=== PATIENT | female | born 1980 | race Caucasian/White ===

== ENCOUNTER 2022-03-27 15:47 | Emergency (ER) | payer MEDICAID, OTHER, SELFPAY ==
[2022-03-27] MEDS: Ibuprofen 600 MG TABLET PO (16:32)
[2022-03-27 16:34] VITALS: BP 104/50; PULSE 100; RESP 18; TEMP 36.4; O2SAT 98; BMI 23.6
--- NOTE | 2022-03-27 17:18 | ED.GENADULT ---
HPI - General Adult General Chief complaint: Ear Problems Stated complaint: ear pain/fever/dizziness/headaches Time Seen by Provider: 03/27/22 16:47 Source: patient Mode of arrival: ambulatory Limitations: no limitations History of Present Illness HPI narrative: 41-year-old female presents to ED for left ear pain, decreased hearing in left ear, dizziness, headache, chills, body aches, and nausea. Patient denies any chest pain, shortness of breath, coughing up blood, rash, abdominal pain, dysuria, hematuria, leg swelling, leg pain, calf pain, dysuria, hematuria, or flank pain. Related Data Previous Rx's Medication Instructions Recorded amoxicillin 875 mg-potassium 1 tab PO Q12H 10 Days #20 tab 03/27/22 clavulanate 125 mg tablet carbamide peroxide 6.5 % ear drops 5 drp OTIC (EAR) LEFT Q12H 4 Days 03/27/22 (Debrox) #60 ml Allergies Allergy/AdvReac Type Severity Reaction Status Date / Time No Known Allergies Allergy Verified 03/27/22 16:36 Review of Systems Review of Systems: Subjective fever, left ear ear pain, decreased hearing of left ear, headache, body aches, chills, Yes all other systems are reviewed and are negative [facility] Past Medical History Medical History (Updated 03/27/22 @ 18:47 by BRENDA Fischer) Asthma Social History Social History Advance Directives: No Advance Directives Information Provided: No Physical Exam ED Vital Signs: Vital Signs - 24 hr 03/27/22 16:34 03/27/22 18:31 Temperature 97.5 F 96.5 F L Pulse Rate 100 82 Respiratory Rate 18 15 Blood Pressure 104/50 L 131/75 Pulse Oximetry 98 100 BMI result Body Mass Index 23.6 Const General: cooperative, healthy appearing, comfortable, no acute distress, well developed, alert and awake Orientation/consciousness: patient oriented x3 HENMT Head: Yes normal to inspection, Yes No palpable skull fracture present, Yes normocephalic, Yes atraumatic and No abrasion Ears: hearing grossly normal bilaterally, external ears normal, EAC's normal, mastoids normal, no periauricular adenopathy and Abnormal EAC present (not able to asses TM on left ear) cerumen impaction on the left and excessive cerumen on the left Eyes General: appearance normal, both eyes and all related structures Neck Neck: Yes normal visual inspection, Yes full ROM, Yes no lymphadenopathy, Yes no meningeal signs, Yes trachea midline, Yes supple, No anterior neck swelling and No tender Chest Chest palpation & inspection: normal inspection of the chest and normal palpation of entire chest wall Resp Effort & Inspection: normal respiratory effort and able to speak in complete sentences Auscultation: clear to auscultation bilaterally Cardio Jugular venous distension: no JVD Heart sounds: S1 normal heart sound present and S2 normal heart sound present GI Inspection: Yes normal to inspection and No abdominal wall ecchymosis Palpation (GI): Soft to palpation, not firm, nontender, no guarding and not rigid General: No CVA tenderness and Yes no CVA tenderness Back/Spine/Pelvis Back: no CVA tenderness, No CVA tenderness and No back tenderness Skin General skin exam: no rashes or lesions noted and elasticity normal Neuro General: patient oriented x3, gait normal, no meningeal signs and CN's II-XI intact bilaterally Cranial nerves: Yes CN's II-XII intact bilaterally Extrem General: Yes normal to inspection and Yes full ROM Psych Appearance: grossly normal, well kempt and not disheveled Course Course Course Narrative: COVID, influenza, UA ordered. Reevaluation(s) Reevaluation #1: Patient COVID influenza swab negative. UA negative for UTI. Patient will be discharged with antibiotics for her ear due to patient stating ear pain and not able to assess tympanic membrane so will discharge with oral antibiotics. Will give Debrox for cerumen. Time: 18:45 Medical Decision Making [facility] Narrative Medical decision making narrative: Cerumen impaction. Infection. Lab Data Labs: Lab Results 03/27/22 03/27/22 03/27/22 Range/Units 16:30 16:30 17:12 Urine Color YELLOW Urine Appearance CLEAR Urine pH 5.5 (5.0-8.0) Ur Specific [place] 1.020 (1.005-1.025) Urine Protein NEG (NEG-TRACE) MG/DL Urine Glucose (UA) NEG (NEG) MG/DL Urine Ketones NEG (NEG) MG/DL Urine Blood 2+ H (NEG) Urine Nitrite NEG (NEG) Ur Leukocyte Esterase NEG (NEG) Urine RBC 0-2 (0) /HPF Urine WBC 0 (0-4) /HPF Ur Squamous Epith Cells TRACE /LPF Urine Bacteria TRACE /LPF Urine Test (NEGATIVE) COVID-19 (TIFFANIE) Negative (Negative) COVID-19 Clin Com See Note Influenza Type A (ALDEN) Negative (Negative) Influenza Type B (ALDEN) Negative (Negative) Influenza A & B Note See Note 03/27/22 Range/Units 17:12 Urine Color Urine Appearance Urine pH (5.0-8.0) Ur Specific [place] (1.005-1.025) Urine Protein (NEG-TRACE) MG/DL Urine Glucose (UA) (NEG) MG/DL Urine Ketones (NEG) MG/DL Urine Blood (NEG) Urine Nitrite (NEG) Ur Leukocyte Esterase (NEG) Urine RBC (0) /HPF Urine WBC (0-4) /HPF Ur Squamous Epith Cells /LPF Urine Bacteria /LPF Urine Test NEGATIVE (NEGATIVE) COVID-19 (TIFFANIE) (Negative) COVID-19 Clin Com Influenza Type A (ALDEN) (Negative) Influenza Type B (ALDEN) (Negative) Influenza A & B Note Discharge Plan Discharge Clinical Impression: Otitis media, Impacted cerumen Patient Disposition: Home, Self-Care Instructions: Carbamide Peroxide (Into the ear), Ear Infection (ED) Additional Instructions: Your COVID and influenza swab came back negative. A urine came back negative for infection. He will be given oral antibiotics to fight the infection in ear. He will be also given Debrox to remove cerumen that is impacted in ear. Return to the ED for any headache, slurred speech, loss of vision, fever, chills, worsening ear pain, ear discharge, dizziness, paralysis of extremities, chest pain, shortness of breath, abdominal pain, hematuria, dysuria, flank pain facial droop, or any other concerning symptoms. Please follow up with your PCP. Prescriptions: New amoxicillin-pot clavulanate 875-125 mg tablet 1 tab PO Q12H 10 Days Qty: 20 0RF Debrox 6.5 % drops 5 drp otic (ear) left Q12H 4 Days Qty: 60 0RF Interventions: ED Discharge Assessment Last Done: 03/27/22 19:26 Discharge Date/Time: 03/27/22 19:27 Print Language: Nigerien
[2022-03-27 17:25] LABS: Appearance Urine CLEAR; Color Urine YELLOW; Glucose Urine UA NEG (NEG); Leukocyte Esterase Urine NEG (NEG); Nitrite Urine NEG (NEG); PH 5.5 (5.0-8.0); UACC Culture Trigger NO; Urine Blood 2+ (NEG); Urine Ketones NEG (NEG); Urine Protein NEG (NEG-TRACE)
[2022-03-27 17:28] LABS: UPreg QC Valid YES; Urine Pregnancy NEGATIVE (NEGATIVE)
[2022-03-27 17:39] LABS: Bacteria Urine TRACE /LPF; RBC Urine 0-2 /HPF (0); Squamous Epithelial Cell Urine TRACE /LPF; WBC Urine 0 /HPF (0-4)
[2022-03-27 18:08] LABS: COVID-19 Test Negative (Negative); Influenza A Negative (Negative); Influenza B2 Negative (Negative)
[2022-03-27 18:31] VITALS: BP 131/75; PULSE 82; RESP 15; TEMP 35.8; O2SAT 100
== END 2022-03-27 19:27 | disposition home or self-care (01) ==
PROVIDERS: Physician Assistant; Emergency Provider Emergency Medicine
DX: H66.92 Otitis media, unspecified, left ear (principal); H61.22 Impacted cerumen, left ear; J45.909 Unspecified asthma, uncomplicated; Z20.822 Contact with and (suspected) exposure to COVID-19
CPT/HCPCS: 81001; 81025; 87502; 87635; 99283; 99284

== ENCOUNTER 2022-03-28 14:50 | Emergency (ER) | payer MEDICAID, OTHER, SELFPAY ==
[2022-03-28 15:43] VITALS: BP 122/56; PULSE 96; RESP 16; TEMP 37.2; O2SAT 99; BMI 23.3
--- NOTE | 2022-03-28 16:44 | ED_ITS ---
HPI - Ear Problem General Chief complaint: Ear Problems Stated complaint: Ear pain/ Dizzy from ear drops Time Seen by Provider: 03/28/22 16:41 Source: patient Mode of arrival: ambulatory Limitations: no limitations History of Present Illness HPI Narrative: 41-year-old female presents to ED for left ear pressure, loss of hearing, dizziness. Patient states she use Debrox for cerumen impaction last night and it did not help. Patient denies any headache, slurred speech, facial droop or paralysis of extremities. Patient was seen here yesterday for same complaint Related Data Previous Rx's Medication Instructions Recorded amoxicillin 875 mg-potassium 1 tab PO Q12H 10 Days #20 tab 03/27/22 clavulanate 125 mg tablet carbamide peroxide 6.5 % ear drops 5 drp OTIC (EAR) LEFT Q12H 4 Days 03/27/22 (Debrox) #60 ml Allergies Allergy/AdvReac Type Severity Reaction Status Date / Time No Known Allergies Allergy Verified 03/27/22 16:36 Review of Systems Review of Systems: Left ear pressure, cerumen impaction, decreased hearing, dizziness Yes all other systems are reviewed and are negative [facility] Past Medical History Medical History (Updated 03/29/22 @ 00:01 by Shashank Collier) Asthma Social History Social History Advance Directives: No Advance Directives Information Provided: No Patient : No Physical Exam Vital Signs: Vital Signs: Last Vital Signs Temp 98.9 F 03/28/22 15:43 Pulse 96 03/28/22 15:43 Resp 16 03/28/22 15:43 BP 122/56 L 03/28/22 15:43 Pulse Ox 99 03/28/22 15:43 BMI result Body Mass Index 23.3 Const: General: cooperative, healthy appearing, comfortable, no acute distress, well developed, alert, awake and Physically active Orientation/consciousness: patient oriented x3 HEENT: Head: Yes normal to inspection, Yes No palpable skull fracture present, Yes normocephalic, Yes atraumatic and No abrasion Ears: hearing grossly normal bilaterally, external ears normal and Abnormal EAC present cerumen impaction on the left Eyes: Other: Negative nystagmus General: appearance normal, both eyes and all related structures Neck: Neck: Yes normal visual inspection, Yes full ROM, Yes no lymphadenopathy, Yes no meningeal signs, Yes trachea midline, Yes supple, No anterior neck swelling and No tender Chest: Chest palpation & inspection: normal inspection of the chest and normal palpation of entire chest wall Resp: Effort & Inspection: normal respiratory effort and able to speak in complete sentences Auscultation: clear to auscultation bilaterally Cardio: Jugular venous distension: no JVD Heart sounds: S1 normal heart sound present and S2 normal heart sound present GI: Inspection: Yes normal to inspection and No abdominal wall ecchymosis Palpation (GI): Soft to palpation, not firm, nontender, no guarding and not rigid : General: No CVA tenderness and Yes no CVA tenderness Back/Spine/Pelvis: Back: no CVA tenderness, No CVA tenderness and No back tenderness Skin: General skin exam: no rashes or lesions noted and elasticity normal Neuro: General: patient oriented x3, tone normal and no meningeal signs Cranial nerves: Yes CN's II-XII intact bilaterally Extrem: General: Yes normal to inspection and Yes full ROM Psych: Appearance: grossly normal, well kempt and not disheveled Course Course Course Narrative: Will attempt to remove cerumen impaction. Reevaluation(s) Reevaluation #1: Colace was placed in the ear patient lie down on lateral position for 20 minutes. Then ear was flushed multiple times with normal saline and some cerumen came out. Curette was used to remove some cerumen also. Patient still has very deep hard cerumen close to the tympanic membrane that is not able to extract. Patient informed to continue taking Debrox and oral antibiotics. Negative for any neuro deficit or nystagmus. Not suspecting any brain etiology. Patient informed to follow-up with hypoid gear tester if after extraction of cerumen 5 days later with Debrox patient still have pressure she was informed she should follow up for possible middle ear effusion. Time: 18:23 Discharge Plan Discharge Clinical Impression: Cerumen impaction Patient Disposition: Home, Self-Care Instructions: Carbamide Peroxide (Into the ear), Earache (ED) Additional Instructions: Eu removi um pouco de cer?men da orelha. H? ainda algum cer?men kirk da orelha esquerda que ? 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 Continue usando Debrox conforme prescrito. Devido a sua membrana timp?vanessa n?o poder ser avaliada eu recomendo alex antibi?ticos orais que lon foi receitada. Por favor, fa?a o acompanhamento com o especialista em ouvido, nariz e garganta. Voc? deve fazer acompanhamento com o otorrinolaringologista Paul Lambert, [phone] [place] [address] [address]. Retorne ao pronto-michelle para qualquer carol de cabe?a, piora da carol de ouvido, tontura, incha?o/vermelhid?o do ouvido, incha?o e vermelhid?o atr?s e na frente da orelha, febre, calafrios, carol no peito, falta de ar, queda facial, paralisia kingsley extremidades, perda de vis?o, incapacidade de andar, mudan?a na marcha, carol de cabe?a intensa, febre, calafrios ou qualquer outra sobre os sintomas. Prescriptions: No Action amoxicillin-pot clavulanate 875-125 mg tablet 1 tab PO Q12H 10 Days Qty: 20 0RF Debrox 6.5 % drops 5 drp otic (ear) left Q12H 4 Days Qty: 60 0RF Referrals: Paul Castaneda [Physician] - (Cerumen impaction. left ear pressure. Dizziness.) Interventions: ED Discharge Assessment Last Done: 03/28/22 19:00 Discharge Date/Time: 03/28/22 19:01 Print Language: Maltese
[2022-03-28] MEDS: Docusate Sodium 100 MG/10 ML LIQUID PO (16:45)
== END 2022-03-28 19:01 | disposition home or self-care (01) ==
PROVIDERS: Emergency Provider Emergency Medicine
DX: H61.22 Impacted cerumen, left ear (principal); J45.909 Unspecified asthma, uncomplicated
CPT/HCPCS: 69210; 99283